=== PATIENT | male | born 1995 | race Caucasian/White ===

== ENCOUNTER → 2017-06-11 | Outpatient (REF) | payer BC ==
[2017-06-11 17:21] LABS: ALBUMIN 3.9 GM/DL (3.2-5.2); ALBUMIN/GLOBULIN RATIO 1.34 (1.00-1.93); ALKALINE PHOSPHATASE 64 U/L (45-117); ALT/SGPT 23 U/L (12-78); ANION GAP 7 MEQ/L (8-16); AST/SGOT 16 U/L (15-37); BILIRUBIN,TOTAL 0.3 MG/DL (0.2-1.0); BLOOD UREA NITROGEN 14 MG/DL (7-18); CALCIUM LEVEL 8.9 MG/DL (8.5-10.1); CARBON DIOXIDE LEVEL 29 MEQ/L (21-32); CHLORIDE LEVEL 106 MEQ/L (98-107); CHOLESTEROL LEVEL 150 MG/DL (<200); FREE T4 0.94 NG/DL (0.78-1.33); GLUCOSE, FASTING 95 MG/DL (70-105); POTASSIUM SERUM 4.3 MEQ/L (3.5-5.1); SODIUM LEVEL 142 MEQ/L (136-145); TOTAL PROTEIN 6.8 GM/DL (6.4-8.2); TRIGLYCERIDES LEVEL 82 MG/DL (<150)
[2017-06-11 17:51] LABS: BASO % 0.6 % (0.0-1.0); EOS # 0.1 K/mm3 (0.0-0.50); EOS % 1.4 % (0.0-3.0); LARGE UNSTAINED CELL # 0.1 K/mm3 (0.0-0.4); LARGE UNSTAINED CELL % 1.5 % (0.0-4.0); LYMPH # 1.4 K/mm3 (1.5-6.5); LYMPH % 28.8 % (24.0-44.0); MEAN CORPUSCULAR HGB CONC 33.9 g/dl (32.0-36.5); MEAN CORPUSCULAR VOLUME 91.4 fl (80.0-96.0); MONO # 0.3 K/mm3 (0.0-0.8); MONO % 6.8 % (0.0-5.0); NEUTROPHILS # 2.8 K/mm3 (1.8-7.7); NEUTROPHILS % 60.9 % (36.0-66.0); PLATELET COUNT, AUTOMATED 209 k/mm3 (150-450); RED CELL DISTRIBUTION WIDTH 12.2 % (11.5-14.5); WHITE BLOOD COUNT 4.6 K/mm3 (4.0-10.0)
== END ==
LOC: EDBD → MERGE 09:15 → M SFHCSACK 09:15
PROVIDERS: ATTEND Physician Assistant
DX: Z13.220 Encounter for screening for lipoid disorders (principal); Z13.29 Encounter for screening for other suspected endocrine disorder; Z13.21 Encounter for screening for nutritional disorder

== ENCOUNTER 2022-02-28 12:44 | Emergency (ER) | payer BC ==
[~2022-02-28] VITALS: Ht 182.9 cm; Wt 93.2 kg
[2022-02-28] MEDS ORDERED: ACET-683 PO (17:50)
[2022-02-28] MEDS ORDERED: IBUP1TAB7 PO (17:50)
[2022-02-28] MEDS ORDERED: diazePAM 5MG TABLET PO ONE (18:25)
[2022-02-28] MEDS ORDERED: KETOROLAC 30 MG/ML 1ML VIAL IM ONE (18:25)
[2022-02-28] MEDS ORDERED: PRED20TA PO (19:41)
[2022-02-28] MEDS ORDERED: METH-1164 PO (19:41)
[2022-02-28] MEDS ORDERED: methocarbamoL 500 MG TAB PO ONE (19:45)
[2022-02-28] MEDS ORDERED: predniSONE 20 MG TAB PO ONE (19:45)
[2022-02-28 20:05] VITALS: BP 112/67
== END 2022-02-28 20:07 | disposition home or self-care (01) ==
LOC: M ED 12:44
DX: M54.50 Low back pain, unspecified (principal); F10.10 Alcohol abuse, uncomplicated; Y92.009 Unspecified place in unspecified non-institutional (private) residence as the place of occurrence of the external cause; Y93.H1 Activity, digging, shoveling and raking; Y99.9 Unspecified external cause status; Z79.899 Other long term (current) drug therapy
CPT/HCPCS: 72131; 96372; 99283; J1885; J7512

== ENCOUNTER → 2024-04-08 | Outpatient (CLI) | payer BC ==
[~2024-04-08] MED LIST: ACET-683 PO; IBUP1TAB7 PO; METH-1164 PO; PRED20TA PO
== END ==
LOC: M RAD 11:49
PROVIDERS: ATTEND Physician Assistant
DX: R10.2 Pelvic and perineal pain (principal)

== ENCOUNTER → 2024-06-13 | Outpatient (REF) | payer BC | LOC: M LAB REF 14:53 | PROVIDERS: ATTEND Family Medicine | DX: N50.812 Left testicular pain (principal) ==

== ENCOUNTER 2024-06-14 20:59 | Emergency (ER) | payer BC ==
[~2024-06-14] VITALS: Ht 182.9 cm; Wt 86.4 kg
[2024-06-14 21:00] VITALS: BP 127/72; TEMP 96; O2SAT 100
[2024-06-14 21:43] LABS: BASO % 0.6 % (0.0-1.0); EOS # 0.1 10^3/uL (0.0-0.5); EOS % 1.2 % (0.0-3.0); HEMATOCRIT 39.8 % (42.0-52.0); HEMOGLOBIN 13.2 g/dl (13.5-17.5); LYMPH # 1.8 10^3/uL (1.5-5.0); LYMPH % 26.4 % (24.0-44.0); MEAN CORPUSCULAR HEMOGLOBIN 29.7 pg (27.0-33.0); MEAN CORPUSCULAR HGB CONC 33.2 g/dl (32.0-36.5); MEAN CORPUSCULAR VOLUME 89.6 fl (80.0-96.0); MONO # 0.7 10^3/uL (0.0-0.8); MONO % 9.8 % (2.0-8.0); NEUTROPHILS # 4.3 10^3/uL (1.5-8.5); NEUTROPHILS % 61.9 % (36.0-66.0); PLATELET COUNT, AUTOMATED 254 10^3/uL (150-450); RED BLOOD COUNT 4.44 10^6/uL (4.30-6.10); WHITE BLOOD COUNT 6.9 10^3/uL (4.0-10.0)
[2024-06-14 22:15] LABS: LIPASE 40 U/L (12-53)
[2024-06-14] MEDS: NS 1,000 ML IV ONE (22:30)
[2024-06-14 22:33] LABS: ALBUMIN 4.1 G/DL (3.2-5.2); ALKALINE PHOSPHATASE 57 U/L (46-116); ALT/SGPT 26 U/L (7.0-40); AST/SGOT 18 U/L (<34); BILIRUBIN,DIRECT 0.2 MG/DL (<0.4); BILIRUBIN,TOTAL 0.4 MG/DL (0.3-1.2); BLOOD UREA NITROGEN 18 MG/DL (9-23); CALCIUM LEVEL 9.3 MG/DL (8.5-10.1); CARBON DIOXIDE LEVEL 26 MMOL/L (20-31); CHLORIDE LEVEL 105 MMOL/L (98-107); CREATININE FOR GFR 1.02 MG/DL (0.70-1.30); GLOMERULAR FILTRATION RATE > 60.0 (>60); GLUCOSE, FASTING 96 MG/DL (60-100); POTASSIUM SERUM 3.6 MMOL/L (3.5-5.1); SODIUM LEVEL 139 MMOL/L (136-145); TOTAL PROTEIN 6.7 G/DL (5.7-8.2)
[2024-06-14] MEDS: KETOROLAC 30 MG/ML 1ML VIAL IV ONE (23:37)
== END 2024-06-15 01:27 | disposition home or self-care (01) ==
LOC: M ED 20:59
DX: N50.812 Left testicular pain (principal); N50.1 Vascular disorders of male genital organs; X50.0XXA Overexertion from strenuous movement or load, initial encounter; M54.50 Low back pain, unspecified; Z79.52 Long term (current) use of systemic steroids; Z79.1 Long term (current) use of non-steroidal anti-inflammatories (NSAID); Z79.899 Other long term (current) drug therapy; Y99.9 Unspecified external cause status
CPT/HCPCS: 76870; 80048; 80076; 83605; 83690; 85025; 87040; 93976; 96374; 99281; J1885

== ENCOUNTER → 2024-06-19 | Outpatient (CLI) | payer BC ==
[2024-06-19 16:22] LABS: LDH LACTATE DEHYDROGENASE 142 U/L (120-246)
== END ==
LOC: M LAB 15:36
PROVIDERS: ATTEND Urology
DX: N50.812 Left testicular pain (principal)

== ENCOUNTER → 2024-06-26 | Outpatient (CLI) | payer BC ==
[~2024-06-26] MED LIST changes: +ISOVUE-370 76% 100ML VIAL As Ordered ONE
== END ==
LOC: M RAD 07:29
PROVIDERS: ATTEND Physician Assistant
DX: R93.812 Abnormal radiologic findings on diagnostic imaging of left testicle (principal)
CPT/HCPCS: 72191; Q9967

== ENCOUNTER → 2024-07-31 | Outpatient (CLI) | payer BC ==
[~2024-07-31] MED LIST changes: -ISOVUE-370 76% 100ML VIAL As Ordered ONE
== END ==
LOC: M RAD 14:33
PROVIDERS: ATTEND Urology
DX: N50.812 Left testicular pain (principal)